=== PATIENT | male | born 1965 | race African-American/Black ===

== ENCOUNTER 2017-08-17 08:20 | Emergency (ER) | payer OTHER ==
[~2017-08-17] VITALS: Ht 175.3 cm; Wt 92.0 kg
[2017-08-17 08:30] VITALS: Ht 175.3 cm; Wt 92.0 kg
[2017-08-17] MEDS ORDERED: SOD CHLORIDE 0.9% 500 ML IV STA (08:35)
[2017-08-17] MEDS ORDERED: KETOROLAC 15 MG INJ IV STA (08:35)
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
[2017-08-17] MEDS ORDERED: AMLO5TAB4 PO (09:07)
[2017-08-17] MEDS ORDERED: QUET100T32 PO (09:07)
[2017-08-17] MEDS ORDERED: VENL75TA PO (09:10)
[2017-08-17] MEDS ORDERED: TEMA15CA PO (09:12)
[2017-08-17 09:16] LABS: BASOPHIL # 0.1 10^3/ul (0.0-0.1); EOSINOPHILS # 0.2 10^3/ul (0.0-0.5); EOSINOPHILS % 2.4 % (0.0-7.0); HEMATOCRIT 47.4 % (42.0-52.0); HEMOGLOBIN 16.2 g/dl (14.0-18.0); LYMPHOCYTES # 2.2 10^3/ul (0.8-2.9); LYMPHOCYTES % 30.5 % (15.0-51.0); MEAN CORPUSCULAR HEMOGLOBIN 31.5 pg (29.0-33.0); MEAN CORPUSCULAR HGB CONC 34.2 g/dl (32.0-37.0); MEAN CORPUSCULAR VOLUME 92.2 fl (82.0-101.0); MEAN PLATELET VOLUME 10.3 fl (7.4-10.4); MONOCYTE # 0.7 10^3/ul (0.3-0.9); MONOCYTES % 9.3 % (0.0-11.0); NEUTROPHIL # 4.1 10^3/ul (1.6-7.5); NEUTROPHILS % 56.5 % (39.0-77.0); PLATELET COUNT 177 10^3/UL (140-415); RED BLOOD COUNT 5.14 10^6/ul (4.70-6.10); RED CELL DISTRIBUTION WIDTH 13.7 % (11.5-14.5); WHITE BLOOD COUNT 7.2 10^3/ul (4.8-10.8)
--- NOTE | 2017-08-17 09:28 | RADRPT ---
PROCEDURE: XR Chest. CLINICAL INDICATION: chest pain TECHNIQUE: Single AP view of the chest were obtained COMPARISON: None FINDINGS: The heart and mediastinum are within normal limits. The pulmonary vasculature are unremarkable. The aorta is grossly unremarkable. There is no lung consolidation, pleural effusion or pneumothorax. Degenerative changes are seen within the thoracic spine. There is no acute osseous abnormality. IMPRESSION: No acute disease. RPTAT: AA .Josh Rey MD, MD Date Time Electronically viewed and signed by .Josh Rey MD, MD on 08/17/2017 09:28 .J/
[2017-08-17 09:46] LABS: ANION GAP 10 (8-16); BLOOD UREA NITROGEN 18 mg/dl (7-20); CALCIUM 8.6 mg/dl (8.4-10.2); CARBON DIOXIDE 26 mmol/L (21-31); CHLORIDE 109 mmol/L (97-110); GLUCOSE 94 mg/dl (70-220); POTASSIUM 4.5 mmol/L (3.5-5.1); SODIUM 140 mmol/L (135-144)
[2017-08-17 09:48] VITALS: BP 117/80; PULSE 76; RESP 18
[2017-08-17 10:01] LABS: TROPONIN-I < 0.012 ng/ml (0.00-0.12)
[2017-08-17] MEDS ORDERED: IBUP-1542 PO (11:04)
== END 2017-08-17 12:26 ==
LOC: E/R 08:20
DX: R07.9 Chest pain, unspecified (principal); I10 Essential (primary) hypertension
CPT/HCPCS: 36415; 71010; 80048; 84484; 85025; 93005; 96374; J1885; J7040; Z7502